=== PATIENT | female | born 1955 | race African-American/Black ===

== ENCOUNTER 2021-07-28 23:39 | Emergency (ER) | payer SELFPAY ==
[~2021-07-28] VITALS: Ht 152.4 cm; Wt 78.0 kg
[~2021-07-28 23:39] MED LIST: BENA20TA10 PO; CLON0.2T PO
[2021-07-29] MEDS ORDERED: LIDOCAINE 5% PATCH TOP SCH (00:45)
[2021-07-29] MEDS ORDERED: KETOROLAC 60MG/2ML VIAL IM ONE (00:45)
[2021-07-29] MEDS ORDERED: CLONIDINE 0.1MG TABLET PO ONE (01:15)
[2021-07-29] MEDS ORDERED: HYDRALAZINE HCL 50MG TABLET PO ONE (01:15)
[2021-07-29] MEDS ORDERED: LIDO700A30 TP (02:33)
[2021-07-29] MEDS ORDERED: IBUP-2029 MT (02:33)
[2021-07-29 02:48] VITALS: BP 187/101
== END 2021-07-29 03:01 | disposition home or self-care (01) ==
LOC: ER 23:39
DX: M54.30 Sciatica, unspecified side (principal); I16.0 Hypertensive urgency; Z91.14 Patient's other noncompliance with medication regimen
CPT/HCPCS: 73502; 96372; 99285; J1885

== ENCOUNTER 2021-09-16 03:29 | Inpatient (IN) | payer MEDICARE ==
[~2021-09-16] VITALS: Ht 152.4 cm; Wt 76.7 kg
[~2021-09-16 03:29] MED LIST changes: +IBUP-2029 MT; +LIDO700A30 TP
[2021-09-16] MEDS ORDERED: CLONIDINE 0.1MG TABLET PO ONE (05:30)
[2021-09-16 05:59] LABS: CHLORIDE 106 mEq/L (98-107)
[2021-09-16 06:08] LABS: BASOPHILS % 0.4 % (0.0-2.0); EOSINOPHILS % 0.6 % (0.0-5.0); HEMATOCRIT. 38.6 % (36.0-48.0); HEMOGLOBIN. 13.1 g/dL (12.0-16.0); LYMPHOCYTES % 19.5 % (20.0-50.0); MEAN CORPUSCULAR VOLUME 85.7 fL (81.0-99.0); MEAN PLATELET VOLUME 10.5 fl (7.4-10.4); MONOCYTES % 10.1 % (2.0-8.0); NEUTROPHILS % 69.4 % (40.0-76.0); PLATELET 192 x1000/uL (130-400); RED CELL DISTRIBUTION WIDTH 14.1 % (11.6-14.6)
[2021-09-16] MEDS ORDERED: NITROGLYCERIN OINT 1GM/INCH UDPKT TD ONE (07:30)
[2021-09-16] MEDS ORDERED: ASPIRIN 325MG EC TABLET PO ONE (07:30)
[2021-09-16] MEDS ORDERED: HYDRALAZINE HCL 50MG TABLET PO ONE (07:30)
[2021-09-16 07:39] LABS: CLARITY URINE CLEAR (CLEAR); COLOR URINE YELLOW (YELLOW); KETONES URINE NEGATIVE (NEGATIVE); LEUKOCYTE ESTERASE URINE 1+ (NEGATIVE); NITRITE URINE NEGATIVE (NEGATIVE); OCCULT BLOOD URINE NEGATIVE (NEGATIVE); PH URINE 5.5 (4.5-8.0); PROTEIN URINE 2+ (NEGATIVE); SPECIFIC GRAVITY URINE 1.012 (1.005-1.030); UROBILINOGEN URINE 0.2 E.U./dL (0.2-1.0)
[2021-09-16] MEDS ORDERED: POTASSIUM CHLORIDE 20MEQ TABLET SR PO ONE (10:00)
[2021-09-16] MEDS ORDERED: DOCUSATE SODIUM 100MG CAPSULE PO PRN (10:15)
[2021-09-16] MEDS ORDERED: DIPHENHYDRAMINE 50MG/ML VIAL IV PRN (10:15)
[2021-09-16] MEDS ORDERED: ONDANSETRON HCL 4MG/2ML INJ IV PRN (10:15)
[2021-09-16] MEDS ORDERED: MAGNESIUM/ALUMINUM HYDROXIDE/SIMETHICONE 30ML UDC PO PRN (10:15)
[2021-09-16] MEDS ORDERED: ACETAMINOPHEN 325MG TABLET PO PRN (10:15)
[2021-09-16] MEDS ORDERED: GUAIFENESIN 200MG/10ML SUGAR FREE UDC PO PRN (10:15)
[2021-09-16] MEDS ORDERED: NA PHOS,M-B/NA PHOS,DI-BA ENEMA 118ML PR PRN (10:15)
[2021-09-16] MEDS ORDERED: ENOXAPARIN 40MG/0.4ML SYR SUBCUT SCH (10:15)
[2021-09-16] MEDS ORDERED: LORAZEPAM 2MG/ML CPJ IV PRN (10:15)
[2021-09-16] MEDS ORDERED: IPRATROPIUM/ALBUTEROL 0.5-3(2.5)MG/3ML NEB NEB PRN (10:15)
[2021-09-16] MEDS: HYDROCODONE/ACETAMINOPHEN 5/325MG TABLET PO PRN ×2 (10:35→23:28)
[2021-09-16] MEDS: CLONIDINE 0.1MG TABLET PO PRN ×2 (10:35→18:47)
[2021-09-16] MEDS ORDERED: ENOXAPARIN 30MG/0.3ML SYR SUBCUT SCH (11:00)
[2021-09-16] MEDS: SODIUM CHLORIDE 0.45% 1,000 ML IV SCH (11:10)
[2021-09-16] MEDS: MORPHINE SULFATE 2 MG/ML CPJ (NOT FOR IM USE) IV PRN (12:00)
[2021-09-16] MEDS ORDERED: NALOXONE HCL 0.4MG/ML VIAL IV PRN (17:15)
[2021-09-16] MEDS ORDERED: POTASSIUM CHLORIDE 20MEQ TABLET SR PO NR (17:30)
[2021-09-16 18:30] VITALS: BP 193/82
[2021-09-16] MEDS ORDERED: KCL 20MEQ/100ML PREMIX 100 ML IV SCH (18:30)
[2021-09-16 20:00] VITALS: BP_SYST 141; BP_SYST 190; BP_DIAS 84
[2021-09-16 20:30] VITALS: BP 141/84
[2021-09-16] MEDS: KCL 20MEQ/100ML PREMIX 100 ML IV SCH ×2 (20:30→22:39)
[2021-09-17] VITALS: BP 157/80
[2021-09-17] MEDS ORDERED: LOSA1TAB34 MT (00:52)
[2021-09-17 04:00] VITALS: BP 155/73
[2021-09-17] MEDS: HYDROCODONE/ACETAMINOPHEN 5/325MG TABLET PO PRN (04:15)
[2021-09-17] MEDS: SODIUM CHLORIDE 0.45% 1,000 ML IV SCH ×2 (04:32→19:50)
[2021-09-17 07:18] LABS: CHLORIDE 106 mEq/L (98-107)
[2021-09-17 07:27] LABS: BASOPHILS % 0.3 % (0.0-2.0); EOSINOPHILS % 0.6 % (0.0-5.0); HEMATOCRIT. 33.7 % (36.0-48.0); HEMOGLOBIN. 11.4 g/dL (12.0-16.0); LYMPHOCYTES % 24.9 % (20.0-50.0); MEAN CORPUSCULAR HEMOGLOBIN 29.2 pg (28.0-32.0); MEAN CORPUSCULAR VOLUME 86.5 fL (81.0-99.0); MEAN PLATELET VOLUME 10.4 fl (7.4-10.4); MONOCYTES % 10.7 % (2.0-8.0); NEUTROPHILS % 63.5 % (40.0-76.0); PLATELET 168 x1000/uL (130-400); RED BLOOD CELL COUNT 3.89 mill/uL (4.2-5.4); RED CELL DISTRIBUTION WIDTH 14.1 % (11.6-14.6)
[2021-09-17 07:40] LABS: HDL CHOLESTEROL 46 mg/dL (40-59); T4 FREE 1.48 ng/dL (0.76-1.46)
[2021-09-17 07:41] LABS: LDL CHOLESTEROL 114 mg/dL (5-100)
[2021-09-17 08:00] VITALS: BP 146/74
[2021-09-17] MEDS: ASPIRIN 81MG EC TABLET PO SCH (08:32)
[2021-09-17] MEDS ORDERED: POTASSIUM CHLORIDE 20MEQ TABLET SR PO NR (09:00)
[2021-09-17] MEDS: APIXABAN 5 MG TABLET PO SCH ×2 (09:52→17:47)
[2021-09-17 12:00] VITALS: BP 121/87
[2021-09-17 13:47] LABS: CREATINE KINASE 90 IU/L (26-192)
[2021-09-17 16:00] VITALS: BP 209/100
[2021-09-17 16:22] LABS: CREATINE KINASE MB FRACTION 1.4 ng/mL (0.5-3.6)
[2021-09-17] MEDS: HYDRALAZINE HCL 50MG TABLET PO SCH (17:45)
[2021-09-17] MEDS: AMLODIPINE 10MG TABLET PO SCH (17:45)
[2021-09-17] MEDS ORDERED: LISINOPRIL 10MG TABLET PO SCH (18:00)
[2021-09-17 20:00] VITALS: BP 251/92
[2021-09-17] MEDS: CLONIDINE 0.3MG TABLET PO PRN (20:10)
[2021-09-17] MEDS: HYDRALAZINE 20MG/ML VIAL IV PRN (20:37)
[2021-09-18] VITALS: BP 139/94
[2021-09-18] MEDS: HYDRALAZINE HCL 50MG TABLET PO SCH ×4 (00:01→22:37)
[2021-09-18 02:07] LABS: CREATINE KINASE MB FRACTION 1.4 ng/mL (0.5-3.6)
[2021-09-18 04:00] VITALS: BP 151/76
[2021-09-18] MEDS: HYDROCODONE/ACETAMINOPHEN 5/325MG TABLET PO PRN ×2 (07:08→22:36)
[2021-09-18 08:00] VITALS: BP 171/66
[2021-09-18 08:50] LABS: BASOPHILS % 0.3 % (0.0-2.0); EOSINOPHILS % 1.1 % (0.0-5.0); HEMATOCRIT. 35.4 % (36.0-48.0); LYMPHOCYTES % 18.4 % (20.0-50.0); MEAN CORPUSCULAR HEMOGLOBIN 29.2 pg (28.0-32.0); MEAN CORPUSCULAR VOLUME 86.1 fL (81.0-99.0); MEAN PLATELET VOLUME 10.4 fl (7.4-10.4); MONOCYTES % 10.6 % (2.0-8.0); NEUTROPHILS % 69.6 % (40.0-76.0); PLATELET 187 x1000/uL (130-400); RED BLOOD CELL COUNT 4.11 mill/uL (4.2-5.4); RED CELL DISTRIBUTION WIDTH 14.1 % (11.6-14.6)
[2021-09-18 09:09] LABS: ANTI-NUCLEAR ANTIBODIES DIRECT Negative (Negative)
[2021-09-18 09:15] LABS: CHLORIDE 107 mEq/L (98-107)
[2021-09-18] MEDS: CLONIDINE 0.3MG TABLET PO PRN (09:19)
[2021-09-18] MEDS: ASPIRIN 81MG EC TABLET PO SCH (09:19)
[2021-09-18] MEDS: AMLODIPINE 10MG TABLET PO SCH (09:19)
[2021-09-18 09:34] LABS: CREATINE KINASE 102 IU/L (26-192)
[2021-09-18 09:36] LABS: CREATINE KINASE MB FRACTION < 1.0 ng/mL (0.5-3.6)
[2021-09-18] MEDS ORDERED: POTASSIUM CHLORIDE 20MEQ TABLET SR PO NR (10:00)
[2021-09-18 10:23] LABS: INR 1.1; PROTHROMBIN TIME 11.6 sec (9.6-11.0)
[2021-09-18] MEDS: ENOXAPARIN 80MG/0.8ML SYR SUBCUT SCH (11:13)
[2021-09-18 11:50] VITALS: BP 112/43
[2021-09-18] MEDS: SODIUM CHLORIDE 0.45% 1,000 ML IV SCH (12:30)
[2021-09-18 16:00] VITALS: BP 125/69
[2021-09-18 20:00] VITALS: BP 144/68
[2021-09-19] VITALS: BP 155/59
[2021-09-19 04:00] VITALS: BP 135/90
[2021-09-19] MEDS: HYDROCODONE/ACETAMINOPHEN 5/325MG TABLET PO PRN (04:31)
[2021-09-19] MEDS: SODIUM CHLORIDE 0.45% 1,000 ML IV SCH (04:35)
[2021-09-19] MEDS: HYDRALAZINE HCL 50MG TABLET PO SCH ×3 (05:23→21:57)
[2021-09-19 07:15] LABS: BASOPHILS % 0.5 % (0.0-2.0); EOSINOPHILS % 1.1 % (0.0-5.0); HEMATOCRIT. 33.4 % (36.0-48.0); HEMOGLOBIN. 11.4 g/dL (12.0-16.0); LYMPHOCYTES % 19.6 % (20.0-50.0); MONOCYTES % 14.2 % (2.0-8.0); NEUTROPHILS % 64.6 % (40.0-76.0); PLATELET 198 x1000/uL (130-400); RED BLOOD CELL COUNT 3.93 mill/uL (4.2-5.4); RED CELL DISTRIBUTION WIDTH 14.2 % (11.6-14.6)
[2021-09-19] MEDS: MORPHINE SULFATE 2 MG/ML CPJ (NOT FOR IM USE) IV PRN ×3 (07:40→22:05)
[2021-09-19 08:00] VITALS: BP 187/77
[2021-09-19] MEDS: AMLODIPINE 10MG TABLET PO SCH (09:47)
[2021-09-19] MEDS: ENOXAPARIN 80MG/0.8ML SYR SUBCUT SCH (09:47)
[2021-09-19] MEDS: ASPIRIN 81MG EC TABLET PO SCH (09:47)
[2021-09-19] MEDS ORDERED: POTASSIUM CHLORIDE 20MEQ TABLET SR PO NR (10:45)
[2021-09-19 11:50] LABS: PHOSPHORUS 3.4 mg/dL (2.5-4.9)
[2021-09-19 12:00] VITALS: BP 127/79
[2021-09-19 16:00] VITALS: BP 133/69
[2021-09-19] MEDS: HYDRALAZINE 20MG/ML VIAL IV PRN (19:53)
[2021-09-19 20:00] VITALS: BP 199/76
[2021-09-20] VITALS: BP 181/71
[2021-09-20] MEDS: CLONIDINE 0.3MG TABLET PO PRN (01:18)
[2021-09-20 04:00] VITALS: BP 160/67
[2021-09-20] MEDS: HYDRALAZINE HCL 50MG TABLET PO SCH ×3 (05:30→21:35)
[2021-09-20 07:35] LABS: BASOPHILS % 0.5 % (0.0-2.0); EOSINOPHILS % 0.5 % (0.0-5.0); HEMATOCRIT. 31.7 % (36.0-48.0); HEMOGLOBIN. 10.9 g/dL (12.0-16.0); LYMPHOCYTES % 18.2 % (20.0-50.0); MEAN CORPUSCULAR HEMOGLOBIN 29.4 pg (28.0-32.0); MEAN CORPUSCULAR VOLUME 85.2 fL (81.0-99.0); MEAN PLATELET VOLUME 9.8 fl (7.4-10.4); MONOCYTES % 14.6 % (2.0-8.0); NEUTROPHILS % 66.2 % (40.0-76.0); PLATELET 209 x1000/uL (130-400); RED BLOOD CELL COUNT 3.72 mill/uL (4.2-5.4); RED CELL DISTRIBUTION WIDTH 13.6 % (11.6-14.6)
[2021-09-20 07:58] VITALS: BP 164/62
[2021-09-20] MEDS: ENOXAPARIN 80MG/0.8ML SYR SUBCUT SCH (08:02)
[2021-09-20] MEDS: AMLODIPINE 10MG TABLET PO SCH (08:02)
[2021-09-20] MEDS: ASPIRIN 81MG EC TABLET PO SCH (08:02)
[2021-09-20 12:00] VITALS: BP 145/70
[2021-09-20] MEDS ORDERED: POTASSIUM CHLORIDE 20MEQ TABLET SR PO NR (12:15)
[2021-09-20] MEDS: HYDROCODONE/ACETAMINOPHEN 5/325MG TABLET PO PRN ×3 (14:04→21:36)
[2021-09-20 16:00] VITALS: BP 134/62
[2021-09-20 20:00] VITALS: BP 165/78
[2021-09-20] MEDS: ATORVASTATIN CALCIUM 40MG TABLET PO SCH (20:31)
[2021-09-21] VITALS (15 sets, daily range): BP systolic 134–200; BP diastolic 58–151
[2021-09-21] MEDS: MORPHINE SULFATE 2 MG/ML CPJ (NOT FOR IM USE) IV PRN ×2 (00:02→06:40)
[2021-09-21] MEDS: HYDRALAZINE HCL 50MG TABLET PO SCH ×3 (05:47→22:01)
[2021-09-21 06:25] LABS: BASOPHILS % 0.5 % (0.0-2.0); EOSINOPHILS % 1.3 % (0.0-5.0); HEMATOCRIT. 34.8 % (36.0-48.0); HEMOGLOBIN. 11.6 g/dL (12.0-16.0); LYMPHOCYTES % 22.8 % (20.0-50.0); MEAN CORPUSCULAR HEMOGLOBIN 28.5 pg (28.0-32.0); MEAN PLATELET VOLUME 10.3 fl (7.4-10.4); MONOCYTES % 14.3 % (2.0-8.0); NEUTROPHILS % 61.1 % (40.0-76.0); PLATELET 229 x1000/uL (130-400); RED BLOOD CELL COUNT 4.05 mill/uL (4.2-5.4); RED CELL DISTRIBUTION WIDTH 13.9 % (11.6-14.6)
[2021-09-21] MEDS: SODIUM CHLORIDE 0.45% 1,000 ML IV SCH (07:10)
[2021-09-21] MEDS ORDERED: POTASSIUM CHLORIDE 20MEQ TABLET SR PO SCH (08:00)
[2021-09-21] MEDS: CLONIDINE 0.3MG TABLET PO PRN (08:17)
[2021-09-21] MEDS ORDERED: NICARDIPINE 100MCG/ML 10ML VIAL (CATH LAB) IV ONE (08:36)
[2021-09-21] MEDS ORDERED: IOHEXOL-300 100 ML BOTTLE ONE ×2 (08:59→09:44)
[2021-09-21] MEDS: ENOXAPARIN 80MG/0.8ML SYR SUBCUT SCH (09:00)
[2021-09-21] MEDS: AMLODIPINE 10MG TABLET PO SCH (09:00)
[2021-09-21] MEDS: ASPIRIN 81MG EC TABLET PO SCH (09:00)
[2021-09-21] MEDS ORDERED: FENTANYL CITRATE/PF 50MCG/ML 5ML VIAL ONE (09:01)
[2021-09-21] MEDS ORDERED: LIDOCAINE HCL 1% 10 MG/ML 10ML VIAL ONE (09:01)
[2021-09-21] MEDS ORDERED: MIDAZOLAM HCL 5 MG/5 ML VIAL ONE (09:01)
[2021-09-21] MEDS ORDERED: HEPARIN 1000 UNITS/ML 10ML ONE (09:39)
[2021-09-21] MEDS ORDERED: ASPIRIN 325MG TABLET ONE (10:18)
[2021-09-21] MEDS ORDERED: CLOPIDOGREL 75MG TABLET ONE (10:18)
[2021-09-21] MEDS ORDERED: ACETAMINOPHEN 325MG TABLET PO PRN (11:00)
[2021-09-21] MEDS ORDERED: ATROPINE SULFATE 1MG/10ML SYR IV PRN (11:00)
[2021-09-21] MEDS ORDERED: SODIUM CHLORIDE 0.45% 500 ML IV SCH (11:00)
[2021-09-21] MEDS: HYDROCODONE/ACETAMINOPHEN 5/325MG TABLET PO PRN ×2 (15:45→22:12)
[2021-09-21] MEDS: HYDRALAZINE 20MG/ML VIAL IV PRN (17:21)
[2021-09-21] MEDS: APIXABAN 5 MG TABLET PO SCH (17:21)
[2021-09-21] MEDS: ATORVASTATIN CALCIUM 40MG TABLET PO SCH (22:00)
[2021-09-22] VITALS (12 sets, daily range): BP systolic 105–188; BP diastolic 29–108
[2021-09-22] MEDS: HYDROCODONE/ACETAMINOPHEN 5/325MG TABLET PO PRN ×2 (03:25→15:10)
[2021-09-22] MEDS: CLONIDINE 0.3MG TABLET PO PRN ×2 (03:29→08:30)
[2021-09-22] MEDS: HYDRALAZINE HCL 50MG TABLET PO SCH ×3 (06:23→22:15)
[2021-09-22 06:56] LABS: HEMATOCRIT. 32.3 % (36.0-48.0); HEMOGLOBIN. 10.8 g/dL (12.0-16.0); MEAN CORPUSCULAR HEMOGLOBIN 28.8 pg (28.0-32.0); MEAN PLATELET VOLUME 9.9 fl (7.4-10.4); PLATELET 232 x1000/uL (130-400); RED BLOOD CELL COUNT 3.76 mill/uL (4.2-5.4); RED CELL DISTRIBUTION WIDTH 13.9 % (11.6-14.6)
[2021-09-22] MEDS: AMLODIPINE 10MG TABLET PO SCH (08:24)
[2021-09-22] MEDS: CLOPIDOGREL 75MG TABLET PO SCH (08:24)
[2021-09-22] MEDS: ASPIRIN 81MG EC TABLET PO SCH (08:24)
[2021-09-22] MEDS: APIXABAN 5 MG TABLET PO SCH ×2 (08:25→16:30)
[2021-09-22] MEDS ORDERED: PREDNISONE 20MG TABLET PO NR (18:00)
[2021-09-22] MEDS ORDERED: LIDOCAINE 5% PATCH TOP NR (18:30)
[2021-09-22] MEDS: ATORVASTATIN CALCIUM 40MG TABLET PO SCH (20:15)
[2021-09-22 21:28] LABS: PLATELET ESTIMATE NORMAL
[2021-09-23] VITALS (8 sets, daily range): BP systolic 130–176; BP diastolic 25–81
[2021-09-23] MEDS ORDERED: PREDNISONE 20MG TABLET PO NR
[2021-09-23] MEDS: HYDRALAZINE HCL 50MG TABLET PO SCH ×2 (05:59→13:19)
[2021-09-23] MEDS ORDERED: PREDNISONE 20MG TABLET PO ONE ×2 (06:00→12:01)
[2021-09-23] MEDS: AMLODIPINE 10MG TABLET PO SCH (08:19)
[2021-09-23] MEDS: APIXABAN 5 MG TABLET PO SCH ×2 (08:19→16:41)
[2021-09-23] MEDS: CLOPIDOGREL 75MG TABLET PO SCH (08:19)
[2021-09-23] MEDS: ASPIRIN 81MG EC TABLET PO SCH (08:19)
[2021-09-23 09:11] LABS: ANTI-DNA DOUBLE STRANDED QUANT < 1 IU/mL (0-9)
[2021-09-23] MEDS ORDERED: NALOXONE HCL 0.4MG/ML VIAL IV PRN (10:00)
[2021-09-24 09:07] LABS: GLOMERULAR BASEMENT MEMB AB 3 units (0-20)
[2021-09-24 13:07] LABS: ALDOLASE 4.2 U/L (3.3-10.3); ANGIOTENSION CONVERTING ENZYME 15 U/L (14-82); ANTI-MYELOPEROXIDASE AB < 9.0 U/mL (0.0-9.0); ANTI-PROTEINASE 3 ABS 4.8 U/mL (0.0-3.5); ATYPICAL P-ANCA <1:20 titer (Neg:<1:20); CYTOPLASMIC C-ANCA <1:20 titer (Neg:<1:20); PERINUCLEAR P-ANCA <1:20 titer (Neg:<1:20)
== END 2021-09-23 18:13 | disposition home health service (06) | DRG 246 ==
LOC: ER 03:29 → MICUSO 09:52 → EDBEDREQ 09:55 → EDBEDREQTM 09:55 → 7EST 17:07 → 3WST 09-21 10:44
PROVIDERS: ADMIT Internal Medicine; ATTEND Internal Medicine
PROC: 027036Z Dilation of Coronary Artery, One Artery with Three Drug-eluting Intraluminal Devices, Percutaneous Approach (ICD-10-PCS; principal; 2021-09-21)
PROC: B211YZZ Fluoroscopy of Multiple Coronary Arteries using Other Contrast (ICD-10-PCS; 2021-09-21)
PROC: 4A023N7 Measurement of Cardiac Sampling and Pressure, Left Heart, Percutaneous Approach (ICD-10-PCS; 2021-09-21)
PROC: B41FYZZ Fluoroscopy of Right Lower Extremity Arteries using Other Contrast (ICD-10-PCS; 2021-09-21)
PROC: B54BZZA Ultrasonography of Right Lower Extremity Veins, Guidance (ICD-10-PCS; 2021-09-21)
PROC: 0S9D3ZZ Drainage of Left Knee Joint, Percutaneous Approach (ICD-10-PCS; 2021-09-21)
DX: I21.4 Non-ST elevation (NSTEMI) myocardial infarction (principal); N17.0 Acute kidney failure with tubular necrosis; I50.21 Acute systolic (congestive) heart failure; E46 Unspecified protein-calorie malnutrition; I42.9 Cardiomyopathy, unspecified; I13.0 Hypertensive heart and chronic kidney disease with heart failure and stage 1 through stage 4 chronic kidney disease, or unspecified chronic kidney disease; F12.90 Cannabis use, unspecified, uncomplicated; E87.6 Hypokalemia; E78.5 Hyperlipidemia, unspecified; I25.10 Atherosclerotic heart disease of native coronary artery without angina pectoris; I35.0 Nonrheumatic aortic (valve) stenosis; I48.91 Unspecified atrial fibrillation; M75.100 Unspecified rotator cuff tear or rupture of unspecified shoulder, not specified as traumatic; N18.9 Chronic kidney disease, unspecified; M54.30 Sciatica, unspecified side; M19.012 Primary osteoarthritis, left shoulder; I27.21 Secondary pulmonary arterial hypertension; M17.12 Unilateral primary osteoarthritis, left knee; D72.810 Lymphocytopenia; Z20.822 Contact with and (suspected) exposure to COVID-19; R80.9 Proteinuria, unspecified; I77.1 Stricture of artery; Z79.899 Other long term (current) drug therapy; Z79.1 Long term (current) use of non-steroidal anti-inflammatories (NSAID)
CPT/HCPCS: 36415; 71045; 73030; 73560; 76770; 78582; 80048; 80053; 80061; 81003; 82085; 82164; 82550; 82553; 83036; 83520; 83735; 83880; 84100; 84439; 84443; 84484; 84550; 85025; 85347; 85379; 85651; 86038; 86160; 86225; 86256; 86431; 87426; 87804; 92928; 93005; 93306; 93458; 93970; 97116; 97162; 97164; 99285; A9558; C1760; C1769; C1874; C1887; C1893; J0360; J1200; J1644; J1650; J2250; J2270; J3010; J3480; J3490; J7512; Q9967

== ENCOUNTER 2022-01-03 16:12 | Emergency (ER) | payer MEDICARE, MEDICAID ==
[~2022-01-03] VITALS: Ht 152.4 cm; Wt 73.0 kg
[2022-01-03] MEDS ORDERED: LOSA1TAB34 PO (16:33)
[2022-01-03] MEDS ORDERED: HYDR-4134 PO (16:33)
[2022-01-03] MEDS ORDERED: ATOR40TA70 PO (16:33)
[2022-01-03] MEDS ORDERED: POTA10CA42 PO (16:33)
[2022-01-03] MEDS ORDERED: ASPI-1497 PO (16:33)
[2022-01-03] MEDS ORDERED: ERGO1250 (16:33)
[2022-01-03] MEDS ORDERED: AMLO10TA80 PO (16:33)
[2022-01-03] MEDS ORDERED: ACETAMINOPHEN 325MG TABLET PO STA (16:37)
[2022-01-03] MEDS ORDERED: ACET-2708 PO (18:15)
[2022-01-03] MEDS ORDERED: TRAM50TA3 PO (18:15)
[2022-01-03 18:48] LABS: BASOPHILS % 0.5 % (0.0-2.0); EOSINOPHILS % 0.7 % (0.0-5.0); HEMATOCRIT. 33.6 % (36.0-48.0); HEMOGLOBIN. 11.3 g/dL (12.0-16.0); LYMPHOCYTES % 17.4 % (20.0-50.0); MEAN CORPUSCULAR HEMOGLOBIN 28.5 pg (28.0-32.0); MEAN CORPUSCULAR VOLUME 84.8 fL (81.0-99.0); MEAN PLATELET VOLUME 8.9 fl (7.4-10.4); MONOCYTES % 13.5 % (2.0-8.0); NEUTROPHILS % 67.9 % (40.0-76.0); PLATELET 285 x1000/uL (130-400); RED BLOOD CELL COUNT 3.96 mill/uL (4.2-5.4); RED CELL DISTRIBUTION WIDTH 14.6 % (11.6-14.6)
[2022-01-03 18:54] LABS: CHLORIDE 103 mEq/L (98-107)
[2022-01-03] MEDS ORDERED: POTASSIUM CHLORIDE 20MEQ TABLET SR PO STA (19:01)
[2022-01-03 19:24] VITALS: BP 147/85
== END 2022-01-03 19:28 | disposition home or self-care (01) ==
LOC: ER 16:12
DX: M79.671 Pain in right foot (principal); E87.6 Hypokalemia; N18.6 End stage renal disease; M72.2 Plantar fascial fibromatosis; F12.10 Cannabis abuse, uncomplicated
CPT/HCPCS: 36415; 73610; 73630; 80053; 85025; 99284

== ENCOUNTER 2022-08-27 14:46 | Emergency (ER) | payer MEDICARE, MEDICAID ==
[~2022-08-27] VITALS: Ht 167.6 cm; Wt 77.0 kg
[~2022-08-27 14:46] MED LIST changes: +ACET-2708 PO; +AMLO5TAB88 PO; +ATOR40TA70 PO; -BENA20TA10 PO; -CLON0.2T PO; +CLOP75TA33 MT; +CLOP75TA33 PO; +ERGO1250 PO; +HYDR-4134 PO; -IBUP-2029 MT; -LIDO700A30 TP; +TRAM50TA3 PO
[2022-08-27 15:01] VITALS: BP 135/82
[2022-08-27] MEDS ORDERED: ACETAMINOPHEN 325MG TABLET PO NR (18:00)
[2022-08-27] MEDS ORDERED: IBUPROFEN 400MG TABLET PO NR (18:00)
[2022-08-27] MEDS ORDERED: IBUP-2028 MT (19:50)
[2022-08-27] MEDS ORDERED: ACET-2708 MT (19:50)
== END 2022-08-27 20:44 | disposition home or self-care (01) ==
LOC: ER 14:46
DX: M79.672 Pain in left foot (principal); M25.561 Pain in right knee; E78.00 Pure hypercholesterolemia, unspecified; I10 Essential (primary) hypertension; Z79.899 Other long term (current) drug therapy; F12.10 Cannabis abuse, uncomplicated
CPT/HCPCS: 73560; 73630; 99284